=== PATIENT | female | born 1995 | race African-American/Black ===

== ENCOUNTER 2017-01-20 10:11 | Emergency (ER) | payer MEDICAID ==
[~2017-01-20] VITALS: Ht 162.6 cm; Wt 97.1 kg
[~2017-01-20 10:11] MED LIST: BACTRIM DS TAB1 EAC1 ORAL; KEFLEX500 MG ORAL
[2017-01-20 10:45] VITALS: BP 129/84
--- NOTE | 2017-01-20 10:58 | Emergency Room Report ---
History of Present Illness General Chief Complaint: Skin Rash/Abscess Source: Patient Present Illness HPI Patient is a 21-year-old female who presented after increased right arm swelling. The patient gradual onset of symptoms. Patient was type II diabetic. She been taking insulin as well as metformin. Patient was noted to have subjective fever. She been having pain and swelling to the right axillary area as well as to the right side of her chest. She denies recent trauma. Allergies: Coded Allergies: No Known Allergies (Unverified , 12/24/14) Patient History Past Medical History: see triage record, DM Last Menstrual Period: 3-9 Now: No Reviewed Nursing Documentation: PMH: Agreed, PSxH: Agreed Nursing Documentation-PMH Hx Diabetes: Yes - type 1 Review of Systems All Other Systems: negative except mentioned in HPI Physical Exam Vital Signs Date Time Temp Pulse Resp B/P Pulse Ox O2 Delivery O2 Flow Rate FiO2 01/20/17 10:28 98.8 106 18 100/59 98 Room Air Sp02 EP Interpretation: reviewed, normal General Appearance: normal inspection, well appearing, alert, GCS 15, mild distress, obese Head: atraumatic ENT: normal ENT inspection, hearing grossly normal, normal voice Neck: normal inspection, full range of motion, supple, no bony tend Respiratory: normal inspection, lungs clear, normal breath sounds, no respiratory distress, no retraction, no wheezing Cardiovascular #1: regular rate, rhythm, no edema Gastrointestinal: normal inspection, normal bowel sounds, non tender, soft, no guarding, no hernia Genitourinary: no CVA tenderness Musculoskeletal: normal inspection, back normal, normal range of motion Neurologic: normal inspection, alert, oriented x3, responsive, inspector tubes III-XII nml as tested, speech normal Psychiatric: normal inspection, judgement/insight normal, mood/affect normal Skin: no rash, other - erythema and without definite abscess to right axillary area Medical Decision Making Diagnostic Impression: Primary Impression: Cellulitis ER Course Patient presented for skin rash. The differential diagnosis included was not limited to abscess, cellulitis, breast cancer, hidradenitis suppurativa among others. The patient was noted to have some erythema consistent with a cellulitis. I don't feel any definite abscess. Patient was given IV fluids as well as IV antibiotics.The patient was discussed with Dr. Mcmillan who agreed except patient in transfer. Patient was noted to have initial lactic acid l which is likely due to patient's metformin use. She does not appear to be septic.. Patient will likely need a ultrasound to definitively rule out abscess is an inpatient. Last Vital Signs Date Time Temp Pulse Resp B/P Pulse Ox O2 Delivery O2 Flow Rate FiO2 01/20/17 10:28 98.8 106 18 100/59 98 Room Air Status: unchanged Disposition: XFER [facility] Condition: Serious Referrals: [facility],REFERR[facility] (PCP) Cristi Read Jan 20, 2017 10:57
[2017-01-20] MEDS ORDERED: Vancomycin 1 GM in NS 275 ML IV ONE (11:00)
[2017-01-20] MEDS ORDERED: Ampicillin/Sulbactam Sod 3 GM in NS 110 ML IV SCH (11:00)
[2017-01-20] MEDS ORDERED: Unasyn 3gm Inj ONE (12:05)
[2017-01-20] MEDS ORDERED: Vancomycin 1gm inj IVPB ONE (12:05)
[2017-01-20 12:09] LABS: BASOPHILS % (AUTO) 1.6 % (0.0-2.0); EOSINOPHILS % (AUTO) 0.9 % (0.0-3.0); LYMPHOCYTES % (AUTO) 21.1 % (20.0-45.0); MEAN CORPUSCULAR HEMOGLOBIN 29.3 PG (27.0-31.0); MEAN CORPUSCULAR HGB CONC 32.4 G/DL (32.0-36.0); MEAN CORPUSCULAR VOLUME 90 FL (80-99); MEAN PLATELET VOLUME 7.3 FL (6.5-10.1); NEUTROPHILS % (AUTO) 66.4 % (45.0-75.0); PLATELET COUNT 347 K/UL (150-450); RED BLOOD COUNT 4.67 M/UL (4.20-5.40); RED CELL DISTRIBUTION WIDTH 12.2 % (11.6-14.8); WHITE BLOOD COUNT 10.2 K/UL (4.8-10.8)
[2017-01-20 12:27] LABS: ALANINE AMINOTRANSFERASE 16 U/L (3-33); ANION GAP 20 (5-15); ASPARTATE AMINO TRANSFERASE 13 U/L (5-40); CARBON DIOXIDE 23 mEQ/L (20-30); CHLORIDE 92 mEQ/L (98-107); CREATININE 0.7 mg/dL (0.5-0.9); GLOMERULAR FILTRATION RATE > 60 mL/min (>60); HEMOLYSIS 3; POTASSIUM 3.5 mEQ/L (3.4-4.9); SODIUM 135 mEQ/L (135-145); TOTAL PROTEIN 7.9 g/dL (6.6-8.7)
[2017-01-20 12:29] LABS: REFLEX LACTIC ACID YES OR NO YES
[2017-01-20 12:29] LABS: APPEARANCE,URINE CLEAR; KETONES,URINE NEGATIVE (NEGATIVE); LEUKOCYTE ESTERASE ,URINE NEGATIVE (NEGATIVE); NITRITE,URINE NEGATIVE (NEGATIVE); PH,URINE 6 (4.5-8.0); PROTEIN,URINE 2+ (NEGATIVE); UROBILINOGEN,URINE 1 MG/DL (0.0-1.0)
[2017-01-20 12:40] LABS: BACTERIA,URINE FEW /HPF; MUCUS,URINE FEW /LPF (NONE/OCC); RBC,URINE 0-2 /HPF (0 - 2); SQUAMOUS EPITHELIAL CELL,UR FEW /LPF (NONE/OCC); WBC,URINE 0-2 /HPF (0 - 2)
--- NOTE | 2017-01-20 12:44 | Diagnostic Imaging Report ---
Indication: SOB Technique: One view of the chest Comparison: none Findings: Lungs and pleural spaces are clear. Heart size is normal. Impression: No acute process
[2017-01-20 13:20] VITALS: BP 125/65
[2017-01-20 14:13] LABS: CKMB < 1.5 ng/mL (< 3.8)
--- NOTE | 2017-01-21 11:23 | Cardiology Report ---
APPROVED REPORT EKG Measurement Heart [id number] Sinus tachycardia Otherwise normal ECG
== END 2017-01-20 13:39 | disposition short-term general hospital (02) ==
LOC: EMR 10:45
DX: L03.111 Cellulitis of right axilla (principal); E10.9 Type 1 diabetes mellitus without complications
CPT/HCPCS: 36415; 71010; 80053; 81003; 82550; 82553; 82962; 83605; 85025; 87040; 93005; 96374; 96375; 99285; J0295; J3370

== ENCOUNTER 2020-05-10 12:41 | Emergency (ER) | payer MEDICAID, OTHER ==
[~2020-05-10] VITALS: Ht 162.6 cm; Wt 95.3 kg
[2020-05-10 12:57] VITALS: BP 115/79
--- NOTE | 2020-05-10 12:58 | NUR ---
ED Nurse Note:pt. came from home with right axillar abscess, no drainage at this time
--- NOTE | 2020-05-10 13:23 | Emergency Room Report ---
History of Present Illness General Chief Complaint: Skin Rash/Abscess Source: Patient Present Illness HPI 24-year-old female with history of diabetes presents with right axillary abscess for 1 week. She reports moderate pain. She has not taken any medications but she has applied warm water to the abscess. She denies any fever , chills, any other symptoms. 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 Patient History Past Medical History: see triage record Last Menstrual Period: 05/04/20 Now: No Reviewed Nursing Documentation: PMH: Agreed; PSxH: Agreed Nursing Documentation-PMH Past Medical History: No History, Except For Hx Diabetes: Yes - type 1 Review of Systems Skin: Reports: see HPI, other - abscess All Other Systems: negative except mentioned in HPI Physical Exam Vital Signs Date Time Temp Pulse Resp B/P (MAP) Pulse Ox O2 Delivery O2 Flow Rate FiO2 05/10/20 12:45 98.8 87 16 115/79 (91) 96 Room Air Sp02 EP Interpretation: reviewed, normal General Appearance: normal inspection, well appearing, no apparent distress, alert, GCS 15, non-toxic Neck: normal inspection, full range of motion, supple, thyroid normal, no meningismus, no bony tend Respiratory: chest non-tender, lungs clear, normal breath sounds, no respiratory distress Cardiovascular #1: normal peripheral pulses, regular rate, rhythm Musculoskeletal: normal inspection, normal range of motion, gait/station normal , non-tender Neurologic: alert, oriented x3, sensory intact, speech normal Psychiatric: judgement/insight normal, mood/affect normal Skin: other Lymphatic: no adenopathy Procedures Incision and Drainage Incision and Drainage : Consent: Verbal Site: Right axilla Blade Size: 11 I & D Procedure: betadine prep, sterile dressing applied Wound Location: axilla Wound's Depth, Shape: superficial Wound Length (cm): 1 Anesthesia: 1% Lidocaine Volume Anesthetic (ccs): 4 Patient Tolerated: Well Complications: None Medical Decision Making PA Attestation Dr. Casas is my supervising physician whom patient management and care has been discussed with. Diagnostic Impression: Primary Impression: Abscess ER Course Pt. presents to the ED c/o abscess to the right axilla for 1 week Ddx considered but are not limited to cellulitis, ingrown hair, bite Vital signs: are WNL, pt. is afebrile H&PE are most consistent with abscess ORDERS: none required at this time, the diagnosis is clinical ED INTERVENTIONS: Incision and drainage performed with no complications. DISCHARGE: At this time pt. is stable for d/c to home. Will provide printed patient care instructions, and prescription for Bactrim. Advised to follow up outpatient in 1-2 days. Care plan and follow up instructions have been discussed with the patient prior to discharge. Last Vital Signs Date Time Temp Pulse Resp B/P (MAP) Pulse Ox O2 Delivery O2 Flow Rate FiO2 05/10/20 12:57 98.8 16 115/79 96 Room Air 05/10/20 12:45 87 Scripts Trimethoprim/Sulfamethoxazole 160/800* (BACTRIM DS TABLET*) 1 Each Tablet 1 TAB ORAL TWICE A DAY for 10 Days, #20 TAB Prov: Jaquelin Belle PSydney 05/10/20 Referrals: [facility],REFERRING (PCP) Jaquelin Belle May 10, 2020 13:23
[2020-05-10] MEDS ORDERED: Lidocaine 1% MPF 10mg/ml 5ml INJ ONE (13:30)
[2020-05-10] MEDS ORDERED: Lidocaine 1% Plain 30 ml INJ ONE (13:30)
[2020-05-10] MEDS ORDERED: BACTRIM DS TAB1 EAC1 ORAL (14:06)
[2020-05-10 14:15] VITALS: BP 115/79
--- NOTE | 2020-05-10 14:15 | NUR ---
ED Nurse Note:dry dressing was placed on right axilla opened abscess Pt cleared by health care Provider for discharge. DC instructions/prescription was given and explained to pt and verbalized understanding of teachings. All medical deviecs such as ID band removed. Pt is AAO x4, ambulatory and left with all personal belongings.
== END 2020-05-10 14:24 | disposition home or self-care (01) ==
LOC: EMR 13:04
DX: L02.411 Cutaneous abscess of right axilla (principal); E10.8 Type 1 diabetes mellitus with unspecified complications
CPT/HCPCS: 10060; J2001; Z7502; 99283

== ENCOUNTER 2020-07-13 09:50 | Emergency (ER) | payer MEDICAID, OTHER ==
[~2020-07-13] VITALS: Ht 162.6 cm; Wt 94.8 kg
[2020-07-13 10:02] VITALS: BP 118/75
--- NOTE | 2020-07-13 10:21 | Emergency Room Report ---
History of Present Illness General Chief Complaint: Skin Rash/Abscess Source: Patient Present Illness HPI The patient presents with a painful lump in her left axilla. The pain is rated 4/10 and aching nonradiating and constant. She has not taken any medication for the pain. She denies fevers or chills. The patient was seen in May with a similar condition in the right axilla. This was successfully treated with Bactrim. Patient is diabetic. The patient denies any exposure to COVID-19 positive contacts. No sore throat, chest pain, palpitations, nausea, vomiting, diarrhea, dysuria, abdominal pain, shortness of breath, joint pain, headache. Last menstruation July 04. Normal for patient. Patient uncertain of last tetanus vaccination. Allergies: Coded Allergies: No Known Allergies (Unverified , 12/24/14) COVID-19 Screening Contact w/high risk pt: No Experienced COVID-19 symptoms?: No COVID-19 Testing performed COAL SHOVELER: No Patient History Last Menstrual Period: 07/04 Now: No Reviewed Nursing Documentation: PMH: Agreed; PSxH: Agreed Nursing Documentation-PMH Past Medical History: No History, Except For Hx Diabetes: Yes - type 1 Review of Systems All Other Systems: negative except mentioned in HPI Physical Exam Vital Signs Date Time Temp Pulse Resp B/P (MAP) Pulse Ox O2 Delivery O2 Flow Rate FiO2 07/13/20 09:56 98.4 87 15 118/75 (89) 99 Room Air Sp02 EP Interpretation: reviewed, normal General Appearance: well appearing, no apparent distress, GCS 15 Head: normocephalic Eyes: bilateral eye normal inspection, bilateral eye PERRL ENT: other Neck: full range of motion - Wearing a mask, supple Respiratory: normal inspection Cardiovascular #1: regular rate, rhythm Cardiovascular #2: 2+ radial (L) Gastrointestinal: normal inspection, overweight Musculoskeletal: gait/station normal, normal range of motion Neurologic: alert, distal neuro normal, grossly normal Psychiatric: mood/affect normal Skin: normal color, warm/dry, other - Painful nodule left axilla without fluctuance or erythema Medical Decision Making Diagnostic Impression: Primary Impression: Abscess of axilla, left ER Course Patient presents with a painful nodule left axilla. Differential includes cellulitis, abscess, lymphadenopathy amongst others. The lesion is not fluctuant and not ready for I and D. Antibiotics and analgesia indicated. Patient declines analgesia at this time. Tetanus is indicated. Discussed local care with patient. Also discussed the need for outpatient follow-up. Patient stable for outpatient observation and treatment. Last Vital Signs Date Time Temp Pulse Resp B/P (MAP) Pulse Ox O2 Delivery O2 Flow Rate FiO2 07/13/20 10:30 98.2 85 16 120/70 98 Room Air Status: improved Disposition: HOME, SELF-CARE Condition: Improved Scripts Bacitracin (Bacitracin) 28.4 Gm Oint...g. 1 APPLIC TOPIC BID, #30 GM Prov: Gunner Ross MD 07/13/20 Trimethoprim/Sulfamethoxazole 160/800* (BACTRIM DS TABLET*) 1 Each Tablet 1 TAB ORAL Q12H, #14 TAB 0 Refills Prov: Gunner Ross MD 07/13/20 Gunner Ross MD Jul 13, 2020 10:21
[2020-07-13] MEDS ORDERED: BACITRACIN15 GM TOPIC (10:24)
[2020-07-13] MEDS ORDERED: BACTRIM DS TAB1 EAC1 ORAL (10:24)
[2020-07-13 10:30] VITALS: BP 120/70
[2020-07-13] MEDS ORDERED: Bacitracin Oint UD TOPIC ONE (10:30)
[2020-07-13] MEDS ORDERED: Bactrim-DS 1 tab ORAL ONE (10:30)
[2020-07-13] MEDS ORDERED: Tetanus/Diptheria/Pertussis IM ONE (10:30)
== END 2020-07-13 10:44 | disposition home or self-care (01) ==
LOC: EMR 10:20
DX: L02.412 Cutaneous abscess of left axilla (principal); E10.9 Type 1 diabetes mellitus without complications
CPT/HCPCS: 90471; 90715; Z7502; 99282